=== PATIENT | male | born 1990 | race Caucasian/White ===

== ENCOUNTER 2021-02-13 09:05 | Emergency (ER) | payer SELFPAY ==
--- NOTE | ~2021-02-13 | XR_ITS ---
EXAMINATION: XR hand RT min 3V EXAM DATE: 02/13/2021 09:30 INDICATION: Initial encounter following injury, with pain of the right hand, 4th 5th metacarpal regio n. TECHNIQUE: Right hand frontal, lateral and oblique projections obtained and reviewed. There is no pr ior study for comparison. FINDINGS: Right metacarpal bones are unremarkable. There are no acute fractures or dislocations iden tified. There is no subcutaneous gas. The soft tissue is unremarkable. There are no radiopaque fo reign bodies. IMPRESSION: No acute osseous findings. Reviewed, dictated and finalized at location B. IMPRESSION: No acute osseous findings.
--- NOTE | 2021-02-13 09:15 | ED.UPPEXIN ---
HPI - Extremity Injury (Upper) General Chief Complaint: Extremity Injury, Upper Stated Complaint: Possible injury to right Hand Time Seen by Provider: 02/13/21 09:16 Source: patient and RN notes reviewed History of Present Illness HPI narrative: Patient is a 31-year-old male who presents the urgent care with complaints of right hand pain and swelling. Patient states that yesterday he was carrying heavy boxes down some steps and had his right hand leaning up against a banister. Patient states the banister broke and he fell down the steps onto his right hand. Patient denies of any other injuries from the fall. Denies of hitting his head or loss of consciousness. Patient has taken anything for the pain. No acute distress noted. Patient aware of the plan of care. Some parts of this dictation were generated by voice recognition software and may contain typographical and/or grammatical inaccuracies. Related Data Home Medications Medication Instructions Recorded Confirmed No Home Medications 02/13/21 02/13/21 Allergies Allergy/AdvReac Type Severity Reaction Status Date / Time No Known Allergies Allergy Unverified 02/13/21 09:32 Review of Systems Review of Systems: CONSTITUTIONAL: Denies fever, chills, or sweats. EYES: Denies visual changes, redness, or discharge. ENT: Denies rhinorrhea, congestion, sore throat, or otalgia. CARDIOVASCULAR: Denies chest pain, palpitations, or edema. RESPIRATORY: Denies cough or dyspnea. GASTROINTESTINAL: Denies abdominal pain, nausea, vomiting, or diarrhea. GENITOURINARY: Denies dysuria or hematuria. SKIN: Denies rash or itching. MUSCULOSKELETAL: Reports of right hand pain and swelling NEUROLOGIC: Denies headache, numbness, or weakness. All other systems reviewed are negative, except as documented in HPI. [facility] Family History Family History (Updated 08/04/18 @ 08:57 by DOCTOR UNKNOWN) Mother Family history of migraine headaches Grandparent Family history of malignant neoplasm of breast Family history of dementia Social History Social History Smoking status: Never smoker Alcohol intake: never Comments At the time of my signature, I reviewed and agree with the nursing past medical, surgical, social, and family history. There is no relevant family history pertinent to the patient complaint. Exam Narrative: GENERAL: This is a well-nourished, well-developed patient, in no apparent distress. HEAD: normocephalic, atraumatic. EYES: PERRL. Sclera clear/white. Vision is grossly intact. EARS: External ears normal NOSE: External nose normal with no obvious nasal discharge, nares without redness, no rhinorrhea. THROAT: Mucous membranes moist NECK: Neck supple CARDIOVASCULAR: Regular rate and rhythm without murmurs, gallops, or rubs. RESPIRATORY: Clear to auscultation. Breath sounds equal bilaterally. No wheezes, rales, or rhonchi. SKIN: warm, intact with no suspicious lesions or rash, good texture and turgor. NEURO: awake, alert, and oriented to person, place and time. There were no obvious focal neurologic abnormalities. EXTREMITIES: Range of motion to right hand unable to test due to pain. Difficulty with making a fist. Positive strong right radial pulse with capillary refill less than 2 seconds. Moderate edema to the ulnar aspect of the right hand with moderate tenderness. Course Vital Signs Vital signs: Vital Signs Temperature 98.5 F 02/13/21 09:16 Pulse Rate 74 02/13/21 09:16 Respiratory Rate 16 02/13/21 09:16 Blood Pressure 130/54 L 02/13/21 09:16 Pulse Oximetry 100 02/13/21 09:16 Temperature 98.5 F 02/13/21 09:16 Pulse Rate 74 02/13/21 09:16 Respiratory Rate 16 02/13/21 09:16 Blood Pressure 130/54 L 02/13/21 09:16 Pulse Oximetry 100 02/13/21 09:16 Reviewed MDM - Extremity Injury (Upper) MDM Narrative Medical decision making narrative: Reviewed x-ray results with the patient. He is aware that there is no notable fracture
[2021-02-13 09:16] VITALS: BP 130/54; PULSE 74; RESP 16; TEMP 36.9; O2SAT 100
== END 2021-02-13 09:45 | disposition home or self-care (01) ==
PROVIDERS: Emergency Provider Nurse Practitioner Family
DX: S60.221A Contusion of right hand, initial encounter (principal); W10.9XXA Fall (on) (from) unspecified stairs and steps, initial encounter
CPT/HCPCS: 73130; 99213; G0463